=== PATIENT | female | born 1995 | race Caucasian/White ===

== ENCOUNTER 2024-09-25 08:02 | Day surgery (SDC) | payer OTHER ==
[2024-09-24 08:14] VITALS: BMI 25.7
[2024-09-25] MEDS ORDERED: Bupivacaine PF 0.5% 30 ML VIAL ONE (09:35)
[2024-09-25] MEDS ORDERED: CEFAZOLIN 2 GM VIAL ONE (09:35)
[2024-09-25] MEDS ORDERED: Scopolamine 1 mg/72 hour Patch ONE (09:37)
[2024-09-25] MEDS ORDERED: Famotidine/PF 20 mg/2ml Vial ONE (09:38)
[2024-09-25] MEDS ORDERED: Bupivacaine/Epinephrine 0.25% 30 ML VIAL ONE (09:39)
[2024-09-25] MEDS ORDERED: Lidocaine 1% PF 5 ML VIAL ONE (09:50)
[2024-09-25] MEDS ORDERED: PROPOFOL 20 ML ONE (09:50)
[2024-09-25] MEDS ORDERED: fentaNYL 50 mcg/mL 1 mL Vial ONE (09:51)
[2024-09-25] MEDS ORDERED: Midazolam HCl 2 mg/2 ml Vial ONE (10:08)
[2024-09-25] MEDS ORDERED: Dexamethasone 4 mg/ml Vial ONE (10:20)
[2024-09-25] MEDS ORDERED: Ondansetron PF 4 MG/2 ML Vial ONE (10:59)
[2024-09-25] MEDS ORDERED: Ketorolac Tromethamine 30 MG (1 mL) VIAL ONE (11:00)
== END 2024-09-25 12:50 | disposition home or self-care (01) ==
LOC: CSHSDC 08:02
PROVIDERS: ATTEND Podiatrist Foot & Ankle Surgery
PROC: 0QSN04Z Reposition Right Metatarsal with Internal Fixation Device, Open Approach (ICD-10-PCS; principal; 2024-09-25)
DX: M20.11 Hallux valgus (acquired), right foot (principal); M21.611 Bunion of right foot; Z98.890 Other specified postprocedural states
CPT/HCPCS: C1713; C1769; J0665; J1100; J1885; J2250; J2405; J2704; J3010; J3490